=== PATIENT | male | born 1960 | race Caucasian/White ===

== ENCOUNTER 2017-09-22 14:33 | Emergency (ER) | payer OTHER ==
[2017-09-22 14:51] VITALS: TEMP 97.9
--- NOTE | 2017-09-22 14:58 | ED.PDOC ---
History of Present Illness - General Chief Complaint: Upper Extremity Injury Stated Complaint: right hand injury Time Seen by Provider: 09/22/17 14:58 Source: patient Exam Limitations: no limitations - History of Present Illness Initial Comments: Pillo Abraham 57 y/o male stated that a large oxygen tank fell on hi right hand at work and hurting several of his fingers.Has throbbing pain on fingers of right hand after incident. Occurred: just prior to arrival Pain - Upper Extremity: moderate: Hand, right Method of Injury: other - see hpi Improving Factors: nothing Worsening Factors: movement Allergies/Adverse Reactions: Allergies NO KNOWN ALLERGY Allergy (Verified 09/22/17 14:50) Home Medications: Ambulatory Orders Acetamin W/Cod #3 Tab [Tylenol w/CODEINE #3] 1 ea PO Q6HRS PRN #20 tab 09/22/17 Cephalexin 1,000 mg PO BID #30 cap 09/22/17 Review of Systems - Review of Systems Constitutional: States: no symptoms reported EENTM: States: no symptoms reported Respiratory: States: no symptoms reported Musculoskeletal: States: see HPI All other Systems: Reviewed and Negative, No Change from Baseline Past Medical History (General) - Patient Medical History Hx Asthma: Yes Surgical History: no surgical history - Vaccination History Hx Tetanus, Diphtheria Vaccination: No Hx Influenza Vaccination: No Hx Pneumococcal Vaccination: No - Social History Hx Tobacco Use: No Hx Alcohol Use: No Hx Substance Use: No Hx Substance Use Treatment: No Hx Depression: No Family Medical History - Family History Mother Family History: Unknown Physical Exam - Physical Exam General Appearance: Alert, Comfortable, No apparent distress Eyes, Ears, Nose, Throat Exam: PERRL/EOMI, normal ENT inspection Neck: non-tender, full range of motion, supple Cardiovascular/Respiratory: regular rate, rhythm, no M/R/G, normal peripheral pulses, normal breath sounds Abdominal Exam: non-tender, no organomegaly Back Exam: normal inspection, no vertebral tenderness Shoulder Exam: normal inspection, non-tender, no evidence of injury Elbow/Forearm Exam: normal inspection, non-tender, no evidence of injury Progress - Progress Progress: 09/22/17 16:13 Last Vital Signs Temp 97.9 F 09/22/17 14:45 Pulse 78 09/22/17 14:45 Resp 20 09/22/17 14:45 BP 140/80 09/22/17 14:45 Pulse Ox 95 09/22/17 14:45 - EKG/XRAY/CT XRAY: hand - fx distal phalanx 4th digit right Departure - Departure Clinical Impression: Crush fracture Fracture, finger, distal phalanx, open Qualifiers: Encounter type: initial encounter Finger: index finger Fracture alignment: displaced Laterality: left Qualified Code(s): S62.631B - Displaced fracture of distal phalanx of left index finger, initial encounter for open fracture Nail avulsion, finger Qualifiers: Encounter type: initial encounter Qualified Code(s): S61.309A - Unspecified open wound of unspecified finger with damage to nail, initial encounter Disposition: Discharge to Home or Self Care Condition: Good Departure Forms: ED Discharge - Pt. Copy, Patient Portal Self Enrollment Instructions: Finger Fracture, DI for Finger Fracture Prescriptions: Acetamin W/Cod #3 Tab [Tylenol w/CODEINE #3] 1 ea PO Q6HRS PRN #20 tab PRN Reason: Pain Cephalexin 1,000 mg PO BID #30 cap Home Medications: Ambulatory Orders Acetamin W/Cod #3 Tab [Tylenol w/CODEINE #3] 1 ea PO Q6HRS PRN #20 tab 09/22/17 Cephalexin 1,000 mg PO BID #30 cap 09/22/17 Additional Instructions: Elevate right forearm 20 degrees at bedtime until better ;follow up with orthopedist -patient to call for appointment
[2017-09-22] MEDS ORDERED: CHLORHEXIDINE GLUCONATE 4 % 15 ML UD TOP ONE (15:02)
[2017-09-22] MEDS ORDERED: CEPHALEXIN MONOHYDRATE 500 MG CAP PO ONE (15:07)
[2017-09-22] MEDS ORDERED: LIDOCAINE 1% 10 ML VIAL INJ ONE (15:20)
[2017-09-22] MEDS ORDERED: TETANUS,DIPHTHERIA,PERTUSSIS 1 EA SYG IM ONE (15:21)
--- NOTE | 2017-09-22 16:03 | RAD ---
EXAM DESCRIPTION: Hand,Right 3 Views CLINICAL HISTORY: injury COMPARISON: None Available. TECHNIQUE: AP, LATERAL, AND OBLIQUE FINDINGS: Three views of the right hand demonstrate a comminuted fracture of the shaft and tuft distal phalanx of the ring finger. The base of the distal phalanx and the remainder the finger appears intact. No additional injuries are noted. Soft tissue swelling is present without foreign body. IMPRESSION: 1. Comminuted fracture of the tuft and shaft of the fourth distal phalanx Electronically signed by: Faizan Hernandez MD 09/22/2017 4:02 PM [facility]
[2017-09-22 16:58] VITALS: BP 128/81; O2SAT 97
== END 2017-09-22 16:55 | disposition home or self-care (01) ==
LOC: ER 14:33
DX: S62.634A Displaced fracture of distal phalanx of right ring finger, initial encounter for closed fracture (principal); S61.314A Laceration without foreign body of right ring finger with damage to nail, initial encounter; Z23 Encounter for immunization; W23.0XXA Caught, crushed, jammed, or pinched between moving objects, initial encounter; Y92.89 Other specified places as the place of occurrence of the external cause; Y99.0 Civilian activity done for income or pay

== ENCOUNTER → 2020-09-12 | Outpatient (CLI) | payer OTHER ==
--- NOTE | 2020-09-13 16:05 | CT ---
Procedure: CT LUNG SCREENING Exam Date: September 12, 2020. Ordering Provider: Huan Cardoza Clinical Indication: PERSONAL HISTORY OF TOBACCO USE, PRESENTING HAZARDS TO HEALTH smoking cessation x4 years. 40 pack-year history. This patient meets eligibility criteria for low-dose CT lung cancer screening. Comparison: None. Technique: Using a multislice scanner, sequential helical axial imaging was obtained in the thorax, 2.5 mm thickness, 2.5 mm separation, from the level of the thoracic inlet through the lung bases without IV contrast. A low dose protocol was utilized for BMI less than 30: BMI: 28. CTDI: 1.76 mGy. 120. kVp. 45 mA. DLP 71 mGy-cm. 2D sagittal and coronal reconstructed images, 6.0 mm thickness, were obtained. This exam was performed according to our departmental dose optimization program which includes use of automated exposure control, adjustment of the mA and/or kV according to patient size and/or use of iterative reconstruction technique. Nodule measurements under 10 mm are given as mean value of 3 axes diameters. FINDINGS: Lungs and large airways: Scattered small blebs in a centrilobular pattern in the upper lung foster. 5.7 mm subpleural solid nodule versus focal pleural thickening right middle lobe on axial series 2, image 98. Smaller subpleural nodules in the right upper lobe. 3 mm subpleural nodule abutting the posterior right hemidiaphragm in the medial right lower lobe on image 2/112. 2 mm perifissural nodule abutting the posterior right major fissure pleural parenchymal scarring in the inferior right middle lobe and lingula. No abnormal nodule and no dominant mass. No focal infiltrate. Pleura and space: Bilateral regions of pleural thickening with no acute process. Mediastinum and trinity: evaluation limited by low dose technique and lack of IV contrast. Small lymph nodes but no dominant solid mass. Heart and great vessels: Coronary artery calcifications. Ectasia of the aortic arch with atherosclerotic calcifications and several brachiocephalic calcifications. Chest wall, lower neck, axillae: Evaluation also limited by same factors as described above. Unremarkable. Upper abdomen: Evaluation limited by low-dose technique. No free air or free fluid. Gallbladder pancreas stomach, kidneys and liver are partially visualized. Normal density and size of the spleen and adrenal glands. Osseous structures: Evaluation limited by low dose MIP technique. Minimal arthrosis in the sternoclavicular joints and glenohumeral joints. Minimal spondylosis. IMPRESSION: Minimal emphysematous changes in the upper lung foster. No acute infiltrate. No abnormal nodules and no masses.. [facility] Best Practice Recommendations: please see below for Lung RADS category and FOLLOW-UP.* *Lung RADS category CATEGORY 2- Nodules with a very low likelihood (less than 1%) of becoming a clinically active cancer due to size or lack of growth. Nodules: Perifissural nodule(s) < 10 mm. (526mm3). Solid or part solid nodule(s) less than 6mm (113.1 mm3), new solid nodule less than 4mm (33.5 mm3). Ground glass nodule(s) less than 30mm (72892.2 mm3) or unchanged or slow growing ground glass nodule 30mm or greater. Cat 3 or 4 nodule unchanged for 3 or more months. FOLLOW-UP: Continue annual screening with a Low Dose Chest CT in 12 months for re-evaluation. 2. Lung RADS Modifier S - Clinically Significant or Potentially Clinically Significant Findings (non lung cancer). Coronary artery calcifications. Ectasia of the abdominal aortic arch. Electronically signed by: Master Pozo MD 09/13/2020 4:03 PM [facility]
== END ==
LOC: CT 14:00
PROVIDERS: ATTEND Family Medicine
DX: Z12.2 Encounter for screening for malignant neoplasm of respiratory organs (principal); J43.9 Emphysema, unspecified; Z87.891 Personal history of nicotine dependence